=== PATIENT | female | born 1950 | race Caucasian/White ===

== ENCOUNTER → 2023-12-03 16:59 | Outpatient (REF) | payer MEDICARE, OTHER, SELFPAY | LOC: MRI 3T 16:59 | PROVIDERS: ATTENDING PHYSICIAN Physician Assistant Surgical; FAMILY PHYSICIAN Family Medicine | DX: M48.062 Spinal stenosis, lumbar region with neurogenic claudication (principal); M54.50 Low back pain, unspecified; M54.16 Radiculopathy, lumbar region | CPT/HCPCS: 72148 ==

== ENCOUNTER → 2024-01-09 15:12 | Outpatient (REF) | payer MEDICARE, OTHER, SELFPAY | LOC: HWRAD 15:12 | PROVIDERS: ATTENDING PHYSICIAN Family Medicine | DX: R51.9 Headache, unspecified (principal) | CPT/HCPCS: 70486 ==

== ENCOUNTER 2024-03-18 08:42 | Emergency (ER) | payer MEDICARE, OTHER, SELFPAY ==
[2024-03-18] VITALS (9 sets, daily range): BP systolic 118–149; BP diastolic 63–81; PULSE 57–82
[2024-03-18 10:08] LABS: % Basophils 0.6 % (0-2); % Eosinophils 0.1 % (0-6); % Immature Granulocytes 0.3 % (0-0.5); % Lymphocytes 16.5 % (20.5-51.1); % Monocytes 7.4 % (1.7-9.3); % Neutrophils 75.1 % (42.2-75.2); Absolute Basophils 0.1 10^3/uL (0-0.2); Absolute Lymphocytes 1.6 10^3/uL (1.2-3.4); Absolute Monocytes 0.7 10^3/uL (0.1-0.6); Absolute Neutrophils 7.1 10^3/uL (1.4-6.5); Mean Corp Hgb Conc. 33.3 g/dL (33.0-37.0); Mean Corpuscular Hgb 30.9 pg (27.0-31.0); Mean Corpuscular Volume 92.7 fL (81.0-99.0); Mean Platelet Volume 11.5 fL (7.4-10.4); Nucleated Red Blood Cells % 0 %; Platelet Count 287 10^3/uL (130-400); Red Blood Cell Count 4.53 10^6/uL (4.20-5.40); Red Cell Dist. Width 13.2 % (11.5-14.5); White Blood Cell Count 9.4 10^3/uL (4.8-10.8)
[2024-03-18 10:16] LABS: ALT (SGPT) 28 U/L (0-35); AST (SGOT) 35 U/L (14-36); Albumin 4.3 g/dl (3.5-5.0); Alkaline Phosphatase 63 U/L (38-126); Blood Urea Nitrogen 35 mg/dl (7-17); Calcium 9.6 mg/dl (8.4-10.2); Carbon Dioxide 27 mmol/L (22-30); Chloride 104 mmol/L (98-107); Glucose 109 mg/dl (70-99); Sodium 140 mmol/L (135-145); Total Bilirubin 0.8 mg/dl (0.2-1.3); Total Protein 7.4 g/dl (6.3-8.2); eGFR 29.57
--- NOTE | 2024-03-18 10:25 | ED.GENMED ---
History of Present Illness
General
Chief Complaint: Dizziness
Source: patient
Exam Limitations: none
Time Seen by Provider: 03/18/24 10:06
Nursing documentation reviewed up to this point in time: agreed with
Travel History
Have you had any contact with someone who has COVID-19?: No
Do you have any symptoms of coronavirus? Fever > 100 degrees, chills, cough, shortness of breath, sore throat, loss of taste or smell, muscle aches, or headache?: No
History of Present Illness
History of Present Illness:
73-year-old female with past medical history of hypertension antiphospholipid syndrome on Coumadin, htn, mitral regurg chronic renal disease presents to the ER for evaluation of palpitations. Patient reports this morning she got up out of bed and
had palpitations and could feel fluttering in her chest. She reports this made her very anxious and then she became little short of breath. She believes that is her anxiety that was giving her the shortness of breath over the palpitations. She
admits to being very anxious over these palpitations. She has had palpitations in the past and in fact had a Holter monitor which was normal. She has been followed by DR Stanford .
She had no associated chest pain. She is asymptomatic now.
She does report she had some diarrhea over the weekend but reports it was not watery mostly soft stools Sunday and Sunday.
Past History
Past History
ED Past Medical History: Arrthythmia, HTN, Hypercholesterolemia, Valvular disease and Other (Antiphospholipid syndrome, DVT, ITP)
ED Past Surgical History: , Gynecological and Other (Splenectomy)
Social History
Tobacco: Non-smoker
Alcohol: None
Drug: None
Personal: Partner
Living: with family
Review of Systems
Review of Systems
Allergies reviewed?: Yes
All Other Systems: ROS reviewed and negative except as documented in HPI and ROS
Constitutional: Reports no symptoms; Denies fever, fatigue or chills
EENT: Reports no symptoms
Respiratory: Reports trouble breathing
Cardiac: Reports palpitations; Denies chest pain, diaphoresis or syncope
ABD/GI: Reports no symptoms
: Reports no symptoms
Musculoskeletal: Reports no symptoms
Skin: Reports no symptoms
Neurological: Reports no symptoms
Psychiatric: Reports no symptoms
Phy Exam
General Physical Exam
General Presentation: well appearing
General age: appears stated age
General Skin: warm and dry
General Habitus: normal
General Mental: alert
General Hydration: appears well hydrated
Cardiovascular Exam
Cardiovascular Exam: regular rate/rhythm, no murmur and normal peripheral pulses
Pulmonary Exam
Pulmonary Exam: lungs clear and no respiratory distress
Neurological Exam
Neurological Exam: alert and oriented x3
[place] Coma Scale
Eye Opening: Spontaneous
Verbal Response: Oriented
Motor Response: Obeys Commands
GCS Total Score: 15
Musculoskeletal Exam
Musculoskeletal Exam: full ROM
Skin Exam
Skin Exam: normal color and warm/dry
Psychiatric Exam
Psychiatric Exam: anxious
Course
Orders/Labs/Results
Orders:
Orders
03/18/24 08:51
Electrocardiogram (*1) Urgent
Reason for Study: Vertigo / Dizzy
EKG- Treatment ONCE
03/18/24 09:53
Complete Blood Count/With Diff Urgent
Comprehensive Metabolic Panel Urgent
TSH Reflex To Free T4 Urgent
Comment: ADD ON
03/18/24 10:27
Add On- LAB Urgent
Tests Added?: tsh with reflexive t4
03/18/24 12:10
PT/INR [Prothrombin Time] Urgent
03/18/24 12:47
Orthostatic VS- Treatment ONCE
0.9% Sodium Chloride 500 ml [Nss] 500 ml IV BOLUS
Abnormal Lab Results
03/18/24 03/18/24
09:53 12:10
MPV 11.5 H fL
(7.4-10.4)
Absolute Neuts (auto) 7.1 H 10^3/uL
(1.4-6.5)
Absolute Monos (auto) 0.7 H 10^3/uL
(0.1-0.6)
Lymphocytes % 16.5 L %
(20.5-51.1)
PT 26.1 H Sec
(11.4-14.6)
BUN 35 H mg/dl
(7-17)
Creatinine 1.8 H mg/dL
(0.6-1.0)
Glucose 109 H mg/dl
(70-99)
03/18/24 09:53
03/18/24 09:53
Vital Signs
Initial and Last Documented VS:
Initial Vital Signs
Temp Pulse Resp BP Pulse Ox
98.0 F 75 20 149/81 99
03/18/24 08:46 03/18/24 08:46 03/18/24 08:46 03/18/24 08:46 03/18/24 08:46
Last Documented Vital Signs
Temp Pulse Resp BP Pulse Ox
98.0 F 54 11 134/65 99
03/18/24 08:46 03/18/24 13:15 03/18/24 13:15 03/18/24 13:00 03/18/24 13:15
MDM/Problems Addressed
Differential Diagnosis Includes:
not limited to: palpitations, arrhythmia anxiety
MDM/Problems Addressed:
Patient as document is a 73-year female who presented with palpitations this morning. She became very anxious over that. She has had these palpitations before had a Holter monitor and was evaluated by cardiology everything was normal patient
presents asymptomatic in no acute distress. In review of records patient had an echo done in June 2023 which showed PVCs throughout the study normal EF stage I diastolic dysfunction suggestive of abnormal relaxation and moderate mitral
regurg mild to moderate aortic regurg and trivial pericardial effusion symptoms occurred today while getting out of bed standing up. She has ocassional PVC on todays EKG no other acute findings. Patient has normal chronic renal disease and her
BUN/creatinine are baseline. Her electrolytes are normal thyroid is normal.
Patient may be mildly dehydrated will give small bolus of fluid check orthostatics however if negative patient is stable for discharge home with cardiology f/u.
Chronic conditions affecting care:
PVCs hypertension
*Pulse Oximetry
Patient hypoxic: no
*EKG
Interpreted by ED Provider?: Yes
Comparison EKG: no changes
Heart Rate: 64
Rate: normal
Rhythm: sinus and PVC's
*Critical Care Note
Total Time (30-74mins, 75-104mins- exclusive of procedures): Not Applicable
ED Attending Note
-
Portions of this chart may have been created with voice recognition software.� Occasional wrong word or��sound alike� substitutions may have occurred due to the inherent limitations of voice recognition software.
Discharge Plan
Departure
Patient Disposition: Home (Routine Discharge)
Date of Disposition: 03/18/24
Time of Disposition: 13:51
Patient with high blood pressure during this ER visit?: Yes
Condition: Fair
Covid-19: Not Applicable
Discharge Problem:
Heart palpitations
Instructions: BLOOD PRESSURE, Heart Palpitations
Prescriptions:
No Action
lisinopril 20 MG tablet
10 mg PO BID
atorvastatin 40 MG tablet
40 mg PO HS
metoprolol succinate 50 MG tablet extended release 24 hr
50 mg PO DAILY
cholecalciferol (vitamin D3) [Vitamin D3] 25 MCG tablet,chewable
1,000 unit PO DAILY
warfarin [Jantoven] 4 MG tablet
2.5 mg PO SUTUWETHSA
warfarin [Jantoven] 5 MG tablet
5 mg PO MOFR
hydrocodone-acetaminophen 1 TABLET tablet
1 tab PO Q4HPRN PRN (Reason: neck / HAGAN ) 5 Days Qty: 20 0RF
pantoprazole 40 MG tablet,delayed release (DR/EC)
40 mg PO BID 30 Days Qty: 60 0RF
ceftriaxone 2,000 MG/20 ML recon soln
2,000 mg IV Q12H 14 Days Qty: 28 0RF
Referrals:
Benji Stanford MD [Active] -
Vivek Blanco MD [Family Provider] -
Activity Restrictions/Additional Instructions:
Stay well hydrated. Follow-up with transverse abdominal muscle nurse as discussed for reevaluation and return if any worsening of symptoms
Interventions
Interventions:
*Risk Screen - Suicide Last Done: 03/18/24 09:55
*General Assessment Last Done: 03/18/24 09:55
*Neglect/Abuse Screening Last Done: 03/18/24 09:55
ED- Fall Risk Assessment Last Done: 03/18/24 09:55
*ED COVID-19 Vaccine History Last Done: 03/18/24 09:55
ED- Neurological Assessment Last Done: 03/18/24 09:57
ED- Cardiac Assessment Last Done: 03/18/24 09:57
Discharge Date and Time
Print Language: DANISH
[2024-03-18 12:17] LABS: TSH Reflex To Free T4 1.69 uIU/ml (0.47-4.68)
[2024-03-18 12:30] LABS: INR 2.41; PT 26.1 Sec (11.4-14.6)
[2024-03-18] MEDS: NSS 500 IV (12:56)
== END 2024-03-18 14:01 | disposition home or self-care (01) ==
LOC: EMR 08:42
PROVIDERS: Nurse Practitioner; EMERGENCY PHYSICIAN Emergency Medicine; FAMILY PHYSICIAN Family Medicine
DX: R00.2 Palpitations (principal); R06.02 Shortness of breath; R19.7 Diarrhea, unspecified; I12.9 Hypertensive chronic kidney disease with stage 1 through stage 4 chronic kidney disease, or unspecified chronic kidney disease; N18.9 Chronic kidney disease, unspecified; D68.61 Antiphospholipid syndrome; E78.00 Pure hypercholesterolemia, unspecified; D69.3 Immune thrombocytopenic purpura; F41.9 Anxiety disorder, unspecified; I34.0 Nonrheumatic mitral (valve) insufficiency; Z79.01 Long term (current) use of anticoagulants; Z86.718 Personal history of other venous thrombosis and embolism; Z90.81 Acquired absence of spleen
CPT/HCPCS: 99284; 96360; 80053; 84443; 85025; 85610; 93005

== ENCOUNTER → 2024-04-30 08:43 | Outpatient (REF) | payer MEDICARE, OTHER, SELFPAY | LOC: RCS 08:43 | PROVIDERS: ATTENDING PHYSICIAN Nurse Practitioner; FAMILY PHYSICIAN Family Medicine | DX: I49.1 Atrial premature depolarization (principal) | CPT/HCPCS: 93306 ==

== ENCOUNTER → 2024-06-06 06:58 | Outpatient (REF) | payer MEDICARE, OTHER, SELFPAY | LOC: WDC 06:58 | PROVIDERS: ATTENDING PHYSICIAN Obstetrics & Gynecology; FAMILY PHYSICIAN Family Medicine | DX: Z12.31 Encounter for screening mammogram for malignant neoplasm of breast (principal) | CPT/HCPCS: 77063; 77067 ==

== ENCOUNTER → 2024-07-22 12:18 | Outpatient (REF) | payer MEDICARE, OTHER, SELFPAY ==
[2024-07-22 13:39] LABS: INR 2.56; PT 27.4 Sec (11.4-14.6)
== END ==
LOC: REG 12:18
PROVIDERS: ATTENDING PHYSICIAN Internal Medicine Hematology & Oncology; FAMILY PHYSICIAN Family Medicine
DX: D68.61 Antiphospholipid syndrome (principal); I82.402 Acute embolism and thrombosis of unspecified deep veins of left lower extremity; D69.3 Immune thrombocytopenic purpura
CPT/HCPCS: 36415; 85610

== ENCOUNTER → 2025-02-23 08:28 | Outpatient (REF) | payer MEDICARE, OTHER, SELFPAY ==
[2025-02-23 09:18] LABS: INR 1.61; PT 19.3 Sec (11.4-14.6)
== END ==
LOC: REG 08:28
PROVIDERS: ATTENDING PHYSICIAN Internal Medicine Hematology & Oncology
DX: D68.61 Antiphospholipid syndrome (principal); I82.402 Acute embolism and thrombosis of unspecified deep veins of left lower extremity; D69.3 Immune thrombocytopenic purpura
CPT/HCPCS: 36415; 85610

== ENCOUNTER 2025-03-25 06:27 | Day surgery (SDC) | payer MEDICARE, OTHER, SELFPAY | END 2025-03-25 14:18 | disposition home or self-care (01) | LOC: GI 06:27 | PROVIDERS: ATTENDING PHYSICIAN Internal Medicine; FAMILY PHYSICIAN Nurse Practitioner Adult Health | DX: Z12.11 Encounter for screening for malignant neoplasm of colon (principal); K64.9 Unspecified hemorrhoids; D12.0 Benign neoplasm of cecum; D12.2 Benign neoplasm of ascending colon; D12.3 Benign neoplasm of transverse colon; D12.5 Benign neoplasm of sigmoid colon; Z86.0101 Personal history of adenomatous and serrated colon polyps | CPT/HCPCS: 45385; 45380; 88305 ==

== ENCOUNTER → 2025-03-27 10:10 | Outpatient (REF) | payer MEDICARE, OTHER, SELFPAY ==
[2025-03-27 10:47] LABS: INR 1.27; PT 16.2 Sec (11.4-14.6)
== END ==
LOC: REG 10:10
PROVIDERS: ATTENDING PHYSICIAN Internal Medicine Hematology & Oncology; FAMILY PHYSICIAN Nurse Practitioner Adult Health
DX: D68.61 Antiphospholipid syndrome (principal); I82.402 Acute embolism and thrombosis of unspecified deep veins of left lower extremity; D69.3 Immune thrombocytopenic purpura
CPT/HCPCS: 36415; 85610

== ENCOUNTER → 2025-03-30 14:07 | Outpatient (REF) | payer MEDICARE, OTHER, SELFPAY ==
[2025-03-30 14:52] LABS: INR 1.41; PT 17.6 Sec (11.4-14.6)
[2025-03-30 14:55] LABS: Hematocrit 41.2 % (37.0-47.0); Hemoglobin 13.1 g/dL (12.0-16.0); Mean Corp Hgb Conc. 31.8 g/dL (33.0-37.0); Mean Corpuscular Hgb 31.3 pg (27.0-31.0); Mean Corpuscular Volume 98.6 fL (81.0-99.0); Mean Platelet Volume 11.9 fL (7.4-10.4); Platelet Count 223 10^3/uL (130-400); Red Blood Cell Count 4.18 10^6/uL (4.20-5.40); Red Cell Dist. Width 12.4 % (11.5-14.5); White Blood Cell Count 4.6 10^3/uL (4.8-10.8)
[2025-03-30 15:17] LABS: % Basophils 0.9 % (0-2); % Eosinophils 0.2 % (0-6); % Immature Granulocytes 0.2 % (0-0.5); % Lymphocytes 46.6 % (20.5-51.1); % Monocytes 10.1 % (1.7-9.3); Absolute Lymphocytes 2.1 10^3/uL (1.2-3.4); Absolute Monocytes 0.5 10^3/uL (0.1-0.6); Absolute Neutrophils 1.9 10^3/uL (1.4-6.5); Nucleated Red Blood Cells % 0 %
== END ==
LOC: REG 14:07
PROVIDERS: ATTENDING PHYSICIAN Internal Medicine Hematology & Oncology
DX: D68.61 Antiphospholipid syndrome (principal); I82.402 Acute embolism and thrombosis of unspecified deep veins of left lower extremity; D69.3 Immune thrombocytopenic purpura
CPT/HCPCS: 36415; 85025; 85610

== ENCOUNTER → 2025-04-02 06:31 | Outpatient (REF) | payer MEDICARE, OTHER, SELFPAY ==
[2025-04-02 07:19] LABS: INR 2.18; PT 24.7 Sec (11.4-14.6)
== END ==
LOC: REG 06:31
PROVIDERS: ATTENDING PHYSICIAN Internal Medicine Hematology & Oncology; FAMILY PHYSICIAN Nurse Practitioner Adult Health
DX: D68.61 Antiphospholipid syndrome (principal); I82.402 Acute embolism and thrombosis of unspecified deep veins of left lower extremity; D69.3 Immune thrombocytopenic purpura
CPT/HCPCS: 36415; 85610

== ENCOUNTER → 2025-06-09 07:14 | Outpatient (REF) | payer MEDICARE, OTHER, SELFPAY | LOC: WDC 07:14 | PROVIDERS: ATTENDING PHYSICIAN Obstetrics & Gynecology; FAMILY PHYSICIAN Nurse Practitioner Adult Health | DX: Z12.31 Encounter for screening mammogram for malignant neoplasm of breast (principal) | CPT/HCPCS: 77063; 77067 ==

== ENCOUNTER 2025-10-18 11:27 | Emergency (ER) | payer MEDICARE, OTHER, SELFPAY ==
[2025-10-18 11:29] VITALS: BP 171/85
--- NOTE | 2025-10-18 15:12 | ED.GENMED ---
History of Present Illness
General
Chief Complaint: Head Injury
Source: patient
Exam Limitations: none
Time Seen by Provider: 10/18/25 14:49
Nursing documentation reviewed up to this point in time: agreed with
History of Present Illness
History of Present Illness:
Patient is a 74-year-old female with history hypertension, hyperlipidemia, ITP on Coumadin presents to the emergency department for evaluation of head injury. Patient states that she was standing on her patio feeding the birds when she slipped on
ice and fell backwards striking her head on the cement. This fall was unwitnessed however she denies any LOC.
Patient reports significant bleeding form laceration on her scalp. She initially reports quite severe headache which has improved greatly since arrival to ED. No vomiting, visual changes, confusion, dizziness. No neck pain, back pain, chest pain, or
shortness of breath. She denies any pain in her lower extremities and has been ambulatory since fall without difficulty.
Patient is anticaogulated on coumadin. She states that she has always been within the therapeutic range and has frequent labwork.
Past History
Past History
ED Past Medical History: Arrthythmia, HTN, Hypercholesterolemia, Valvular disease and Other (Antiphospholipid syndrome, DVT, ITP)
ED Past Surgical History: , Gynecological and Other (Splenectomy)
Social History
Tobacco: Non-smoker
Alcohol: None
Drug: None
Personal: Partner
Living: with family
Review of Systems
Review of Systems
Allergies reviewed?: Yes
All Other Systems: ROS reviewed and negative except as documented in HPI and ROS
Phy Exam
Physical Exam
Physical Exam:
Vitals: Hypertensive, otherwise vital signs stable. Afebrile
Skin: 6.5 cm horizonta laceration to posterior scalp with active oozing of blood.
Head: Normocephalic, linear laceration posterior scalp as above
Eyes: Sclera nonicteric. Pupils equal round and reactive to light bilaterally. EOMs intact. No nystagmus.
Throat: Protecting airway
Neck: Normal ROM, no cervical spine tenderness, no meningismus
Cardiac: Regular rate and rhythm, no murmurs. No anterior or posterior chest wall tenderness.
Pulm: Normal respiratory effort. Lungs clear.
.
Abdomen: Nondistended. Soft and nontender.
Extremities: Bilateral upper and lower extremities atraumatic and nontender with full ROM.
Neuro: AAOx3. CN II-XII grossly intact. No facial droop or asymmetry. No focal neurologic deficits.
Psychiatric: Normal affect.
Course
Orders/Labs/Results
Orders:
Orders
10/18/25 11:[address] [CT Head W/o Iv Contrast] Urgent
Comment:
Reason For Exam: fall
10/18/25 11:30
CT Cervical Spine W/o Iv Contr Urgent
Comment:
Reason For Exam: fall
10/18/25 15:07
Acetaminophen [Tylenol] 1,000 mg PO NOW STA
Vital Signs
Initial and Last Documented VS:
Initial Vital Signs
Temp Pulse Resp BP Pulse Ox
97.6 F 61 16 171/85 98
10/18/25 11:29 10/18/25 11:29 10/18/25 11:29 10/18/25 11:29 10/18/25 11:29
Last Documented Vital Signs
Temp Pulse Resp BP Pulse Ox
97.6 F 84 20 134/77 99
10/18/25 11:29 10/18/25 16:00 10/18/25 16:00 10/18/25 16:00 10/18/25 16:00
Procedures
Laceration Closure
Posterior Scalp:
Status of Wound: clean
Size of Wound in cm: 6.5
Description of Wound Edges: sharp
Preparation: cleaned with saline
Anesthesia: 1% Lidocaine with epi
Revision/Debridement: routine- no revision
Wound exploration: explored to base- no FB
Type of Closure: single layer closure
Skin Closure Material: skin lindsay (8)
MDM/Problems Addressed
Differential Diagnosis Includes:
Not limited to: Laceration, concussion, intracranial bleed, cervical spine fracture, etc
MDM/Problems Addressed:
74-year-old female on Coumadin presenting with laceration to posterior scalp after mechanical fall and ice with head strike. No LOC. Reports headache, which has improved since arrival to ED. No pain in upper or lower extremities. No neck or back
pain. Patient hemodynamically stable on arrival. On exam, he does have an approximately 6.5 linear laceration to posterior scalp. No midline cervical spine tenderness or obvious injuries for extremities. She is alert and oriented without any
focal deficits.
Prior to my evaluation a CT head and cervical spine were obtained without any traumatic intracranial injuries or cervical spine injuries. Laceration will require primary closure
Verbal consent obtained. Laceration irrigated thoroughly with normal saline and anesthetized with 1% lidocaine with epinephrine. Wound edges well-approximated 8 lindsay. Patient tolerated procedure well.
Patient's headache has improved and she has no new neurologic deficits. Feel stable for discharge home with staple removal in 5 to 7 days and primary care follow-up. Wound care instructions discussed, including close monitoring for signs of
infection. She is unsure when her last Tdap vaccine was-she will contact her PCP to confirm and have it updated if needed. Patient and patient's comfortable with discharge
Chronic conditions affecting care:
ITP on coumadin
Acute Exacerbation and/or Progression of Chronic Illness:
N/A
*Radiology
Radiology exam reviewed: radiology read reviewed
*Pulse Oximetry
SaO2: 98
Oxygen Mode of Delivery: Room air
Patient hypoxic: no
*EKG
Interpreted by ED Provider?: NA
*Tufting Machine Operator Single Needle Interpretation
Rate: Tufting Machine Operator Single Needle- N/A
*Critical Care Note
Total Time (30-74mins, 75-104mins- exclusive of procedures): Not Applicable
ED Attending Note
-
Portions of this chart may have been created with voice recognition software.� Occasional wrong word or��sound alike� substitutions may have occurred due to the inherent limitations of voice recognition software.
Discharge Plan
Departure
Patient Disposition: Home (Routine Discharge)
Date of Disposition: 10/18/25
Time of Disposition: 16:00
Patient with high blood pressure during this ER visit?: Yes
Condition: Good
Discharge Problem:
Head injury, Laceration of scalp
Instructions: Concussion, Adult (DC), Head Injury in Adults (DC), Laceration Repair With [place] (DC)
Prescriptions:
No Action
lisinopril 20 MG tablet
10 mg PO BID
atorvastatin 40 MG tablet
40 mg PO HS
metoprolol succinate 50 MG tablet extended release 24 hr
50 mg PO DAILY
cholecalciferol (vitamin D3) [Vitamin D3] 25 MCG tablet,chewable
1,000 unit PO DAILY
warfarin [Jantoven] 4 MG tablet
2.5 mg PO SUTUWETHSA
warfarin [Jantoven] 5 MG tablet
5 mg PO MOFR
hydrocodone-acetaminophen 1 TABLET tablet
1 tab PO Q4HPRN PRN (Reason: neck / HAGAN ) 5 Days Qty: 20 0RF
pantoprazole 40 MG tablet,delayed release (DR/EC)
40 mg PO BID 30 Days Qty: 60 0RF
ceftriaxone 2,000 MG/20 ML recon soln
2,000 mg IV Q12H 14 Days Qty: 28 0RF
Referrals:
Madonna Vidales CRNP [Family Provider, General] - Follow up in 2-3 days
Activity Restrictions/Additional Instructions:
RETURN TO THE EMERGENCY DEPARTMENT ANY SEVERE HEADACHE OR NECK PAIN, CHANGES IN VISION, INTRACTABLE VOMITING, CHANGES IN MENTAL STATUS OR DIZZINESS, PERSISTENT BLEEDING, OR ANY EVIDENCE OF INFECTION, OR ANY OTHER CONCERNING SYMPTOMS
- As discussed�the CT imaging of your head and cervical spine showed no acute abnormalities. You may have sustained a minor concussion.
- Your scalp laceration was closed with 8 lindsay today in the emergency department. This should be removed in 5 to 7 days with your primary care provider. Please apply small amount of topical antibiotic, wash wound daily with soap/water and
monitor closely for signs of infection. You can take Tylenol needed for pain.
- Please contact your PCP to determine last Tdap vaccine and if greater than 5 years and update tetanus vaccine will be recommended
Monitor your symptoms closely and return to the emergency department with any acute worsening/new symptoms or any other concerns
Interventions
Interventions:
*General Assessment Last Done: 10/18/25 11:29
*Neglect/Abuse Screening Last Done: 10/18/25 11:29
*ED COVID-19 Vaccine History Last Done: 10/18/25 16:00
*ED Influenza Vaccine History Last Done: 10/18/25 16:00
*Risk Screen - Suicide (C-SSRS) Last Done: 10/18/25 11:29
*Nursing Disposition Last Done: 10/18/25 16:45
ED-Musculoskeletal Assessment Last Done: 10/18/25 16:00
ED- Neurological Assessment Last Done: 10/18/25 16:00
ED-Skin Assessment Last Done: 10/18/25 16:00
Discharge Date and Time
Discharge Date/Time: 10/18/25 16:45
Print Language: CROATIAN
[2025-10-18] MEDS: TYLENOL 1000 MG PO (15:20)
[2025-10-18 16:00] VITALS: BP 134/77
== END 2025-10-18 16:45 | disposition home or self-care (01) ==
LOC: EMR 11:27
PROVIDERS: EMERGENCY PHYSICIAN Emergency Medicine; FAMILY PHYSICIAN Nurse Practitioner Adult Health
DX: S01.01XA Laceration without foreign body of scalp, initial encounter (principal); S09.90XA Unspecified injury of head, initial encounter; W00.0XXA Fall on same level due to ice and snow, initial encounter; I10 Essential (primary) hypertension; E78.00 Pure hypercholesterolemia, unspecified; D69.3 Immune thrombocytopenic purpura; Z86.718 Personal history of other venous thrombosis and embolism; Z79.01 Long term (current) use of anticoagulants; Z90.81 Acquired absence of spleen
CPT/HCPCS: 99284; 12002; 70450; 72125